=== PATIENT | male | born 1940 | race African-American/Black ===

== ENCOUNTER 2017-11-22 21:45 | Emergency (ER) | payer MEDICARE ==
[2017-11-22 22:37] LABS: #Eosinphils 0.1 thou/uL (0.0-0.7); #Lymphocytes 1.5 thou/uL (1.20-3.40); #Monocytes 0.3 thou/uL (0.11-0.59); #Neutrophils 1.8 thou/uL (1.40-6.50); %Eosinophils 3.3 % (0.0-10.0); %Lymphocytes 39.8 % (21.0-51.0); %Monocytes 8.1 % (0.0-10.0); %Neutrophils 48.7 % (42.0-75.0); Hemoglobin 12.7 g/dL (14.0-18.0); Mean Corpuscular HGB CONC 34.1 g/dL (32.0-36.0); Mean Corpuscular Volume 87.9 fl (80.0-94.0); Mean Platelet Volume 7.4 fL (7.4-10.4); Platelet Count 187 thou/uL (130-400); RBC Distribution Width 11.4 % (11.5-14.5); Red Blood Cell (RBC) Count 4.25 mill/uL (4.70-6.10); White Blood Cell (WBC) Count 3.7 thou/uL (4.8-10.8)
[2017-11-22 22:59] LABS: ALT (SGPT) 23 U/L (8-55); AST (SGOT) 20 U/L (5-34); Alkaline Phosphatase 214 U/L (40-150); Anion Gap 14 mmol/L (10-20); BUN (Urea Nitrogen) 23 mg/dL (8.4-25.7); Bilirubin, Total 0.6 mg/dL (0.2-1.2); Calc. Creatinine Clearance 0 mL/min (70-130); Calcium 9.5 mg/dL (7.8-10.44); Carbon Dioxide 28 mmol/L (23-31); Chloride 98 mmol/L (98-107); Estimated GFR-MDRD 53; Glucose 365 mg/dL (83-110); Potassium 3.8 mmol/L (3.5-5.1); Sodium 136 mmol/L (136-145)
[2017-11-22 23:24] LABS: Bilirubin Negative (Negative); Blood, Urine Negative (Negative); Clarity CLEAR (Clear); Glucose, Urine (Dipstick) >=1000 mg/dL (Negative); Leukocyte Negative (Negative); Nitrite Negative (Negative); Protein, Urine (Dipstick) Negative (Neg-Trace); Specific Gravity, Urine 1.013 (1.002-1.036); Urobilinogen 0.2 mg/dL (0.2-1.0); pH, Urine 5.5 (5.0-9.0)
== END 2017-11-23 01:45 | disposition home or self-care (01) ==
LOC: ERS 21:45
DX: E11.65 Type 2 diabetes mellitus with hyperglycemia (principal); N40.0 Benign prostatic hyperplasia without lower urinary tract symptoms; E11.9 Type 2 diabetes mellitus without complications; E78.5 Hyperlipidemia, unspecified; I10 Essential (primary) hypertension; F17.220 Nicotine dependence, chewing tobacco, uncomplicated; F32.9 Major depressive disorder, single episode, unspecified; Z79.4 Long term (current) use of insulin
CPT/HCPCS: 36415; 36416; 80053; 81003; 85025; 99284

== ENCOUNTER 2018-04-29 07:54 | Observation (INO) | payer MEDICARE ==
[2018-04-29 08:22] LABS: #Eosinphils 0.1 thou/uL (0.0-0.7); #Lymphocytes 0.5 thou/uL (1.20-3.40); #Monocytes 0.3 thou/uL (0.11-0.59); #Neutrophils 2.9 thou/uL (1.40-6.50); %Basophils 0.7 % (0.0-1.0); %Eosinophils 2.2 % (0.0-10.0); %Lymphocytes 12.5 % (21.0-51.0); %Monocytes 7.6 % (0.0-10.0); Hemoglobin 13.4 g/dL (14.0-18.0); Mean Corpuscular HGB CONC 34.9 g/dL (32.0-36.0); Mean Corpuscular Hemoglobin 30.8 pg (27.0-31.0); Mean Corpuscular Volume 88.4 fL (78.0-98.0); Mean Platelet Volume 7.2 fL (7.4-10.4); Platelet Count 133 thou/uL (130-400); RBC Distribution Width 11.8 % (11.5-14.5); Red Blood Cell (RBC) Count 4.35 mill/uL (4.70-6.10); White Blood Cell (WBC) Count 3.8 thou/uL (4.8-10.8)
[2018-04-29 08:43] LABS: ALT (SGPT) 15 U/L (8-55); AST (SGOT) 19 U/L (5-34); Albumin 3.6 g/dL (3.4-4.8); Alkaline Phosphatase 265 U/L (40-150); Anion Gap 11 mmol/L (10-20); BUN (Urea Nitrogen) 23 mg/dL (8.4-25.7); CK (CPK) 342 U/L (30-200); Calc. Creatinine Clearance 0 mL/min (70-130); Calcium 8.7 mg/dL (7.8-10.44); Carbon Dioxide 24 mmol/L (23-31); Chloride 106 mmol/L (98-107); Estimated GFR-MDRD 72; Globulin 2.7 g/dL (2.4-3.5); Glucose 216 mg/dL (83-110); Potassium 3.7 mmol/L (3.5-5.1); Protein, Total 6.3 g/dL (5.8-8.1); Sodium 137 mmol/L (136-145)
[2018-04-29 08:48] LABS: CKMB 3.3 ng/mL (0-6.6); Troponin I Less than 0.010 ng/mL (< 0.028)
[2018-04-29 10:25] LABS: Bilirubin Negative (Negative); Blood, Urine Negative (Negative); Clarity CLEAR (Clear); Glucose, Urine (Dipstick) >=1000 mg/dL (Negative); Leukocyte Negative (Negative); Nitrite Negative (Negative); Protein, Urine (Dipstick) Negative (Neg-Trace); Specific Gravity, Urine 1.029 (1.002-1.036); pH, Urine 5.5 (5.0-9.0)
--- NOTE | 2018-04-29 10:45 | CT ---
NONCONTRAST CT HEAD: Date: 04/29/18 HISTORY: Generalized weakness. Patient fell. COMPARISON: 06/17/16. FINDINGS: There is no evidence of a hemorrhage, acute cortical infarction, mass effect, or midline shift. Mild cerebral volume loss is again present. Ventricular system is normal in size, shape, and position. Sy mmetric bilateral basal ganglia calcifications are again identified. There is mild mucosal thickening in a few ethmoidal air cells. Mastoid air cells are clear. Calvarial structures are intact. There has been no significant interval change from the prior exam. IMPRESSION: No acute intracranial abnormality is demonstrated. POS: [facility]
[2018-04-29] MEDS ORDERED: hydrALAZINE 20 MG/ML VIAL ONE (13:21)
[2018-04-29] MEDS ORDERED: Acetaminophen 325 MG TAB PO PRN (13:44)
[2018-04-29] MEDS ORDERED: Dextrose 5% in Water 1,000 ML IV PRN (13:50)
[2018-04-29] MEDS ORDERED: Dextrose 50% Abboject 50 ML SYRINGE SLOW IVP PRN (13:50)
--- NOTE | 2018-04-29 14:41 | HP ---
CHIEF COMPLAINT: Weakness. HISTORY OF PRESENT ILLNESS: This patient is a 77-year-old male who reports that he has had some gene ralized weakness which seems to be a result of his back and lower legs and left shoulder more than an ything. He states that 2 weeks ago he bent over for some reason, then he was not able to stabilize h imself and kept falling forward and bumped the top of his head. He shows me a small healing area whe re he had a superficial abrasion. Today, the patient was asleep and awoke around 6:30 thinking he ne eded to void. He tried to get up and his legs would not support him, so he fell to the ground and araiza d some incontinence. The patient reports that he has generalized weakness in his legs and back that have been going on for a very long while and seemed to be getting worse. He occasionally has some ti ngling in the left shoulder and has some specific pain and weakness isolated to the left shoulder. Daniela wiseman has a TENS unit that he uses for that. He denies specifically any fevers, chills or malaise. He r eports that he typically cannot walk further than across the bedroom because he has too much pain in his back and weakness in his legs. The patient in the emergency room was experiencing some headache. His blood pressure became somewhat elevated. He required some IV medications to address that. PAST MEDICAL HISTORY: Notable for diabetes, diabetic neuropathy, BPH, hypertension, hyperlipidemia. PAST SURGICAL HISTORY: Right lung surgery secondary to what he says was a pneumonia when he was abou t 8 years old. History of left knee surgery and eye surgery. SOCIAL HISTORY: The patient is a nonsmoker. He quit smoking in 1977. He only drinks very occasiona lly socially. He is a nondrug user. He previously lived alone, but his daughter has now moved in [facility]. His daughter and granddaughter do most of the shopping and cooking. He does continue to [employer]. CODE STATUS: The patient is a FULL CODE and his surrogate decision maker would be his daughter, Michelle Daniels. FAMILY HISTORY: Father and mother both of cancer. REVIEW OF SYSTEMS: GENERAL: The patient has no fevers or chills. Reports his weight has been steady. ENT: He has some hearing difficulty and wears hearing aids. CARDIAC: Negative. He denies chest pains, palpitations. PULMONARY: Negative. Denies any shortness of breath or cough. GASTROINTESTINAL: The patient denies any incontinence or diarrhea, but does occasionally have some c onstipation. : The patient does have urinary urgency. SKIN: Negative. No lesions or rashes. NEURO: As stated above in the history of present illness. PSYCHIATRIC: No anxiety or depression. ENDO: The patient denies any polyuria, polydipsia. He is not following his blood sugars routinely a t home. ALLERGIES: None. CURRENT MEDICATIONS: Glyburide 5 mg every day, gabapentin 300 mg t.i.d., metformin 1000 mg b.i.d., a spirin 81 mg every day, Crestor 40 mg every day, Tramadol 50 mg q.6 hours p.r.n., Coreg 12.5 mg b.i. d. Losartan/HCTZ 100/25 one p.o. daily, Flomax 0.4 mg every day, calcium 300 mg 2 p.o. daily. PHYSICAL EXAMINATION: VITAL SIGNS: Last blood pressure documented was 159/106, pulse 71, respirations 16, O2 sat 96% on ro om air. GENERAL APPEARANCE Age appropriate male. He is in no distress. He is awake, alert, and extremely pl easant, cooperative. HEENT: PERRL. No OP lesions. NECK: Supple and symmetric without lymphadenopathy or JVD. CARDIOVASCULAR: Regular rate and rhythm without murmurs, gallops or rubs. LUNGS: Clear to auscultation bilaterally with good chest wall expansion and air exchange. ABDOMEN: Soft, nontender, nondistended, positive bowel sounds, no masses, no organomegaly. EXTREMITIES: Warm and dry without edema. The patient appears to have some slight atrophy in the pos terior deltoid area. NEUROLOGIC: The patient has a subtle weakness on the left lower extremity distally. He also has equ ivocal weakness on the left upper extremity. LABORATORY DATA: White count 3.8, hemoglobin 13.4, platelets 133. Sodium 137, potassium 3.7, chlori de 106, BUN 23, creatinine 1.18, glucose 216, AST 19, ALT 15, alkaline phosphatase 265, CK 342. Trop onin less than 0.01. Urinalysis negative except for glucosuria. CT scan of the brain with no acute intracranial abnormalities. ASSESSMENT AND PLAN: 1. Generalized weakness. The patient was seen here in 06/2016, at which time he underwent an extens jostin workup for syncope. He had an MRI of the brain, carotid Dopplers, echocardiogram, as well as cecil ging of the C-spine, all of that was normal at that time. We will go ahead and evaluate with a repea t echocardiogram and continuous telemetry. We will get MRI of the C-spine and the lumbar spine. Obt ain PT and OT consults. 2. Hypertension. The patient is having fairly substantial hypertension in the emergency room. He w as given his usual home medications which he had missed this morning. He has also received 1 dose of IV hydralazine. We will continue to monitor. 3. Diabetes mellitus. Continue with his usual home medications as well as Accu-Cheks, sliding scale and an ADA diet. 4. Mild pancytopenia. This appears to be chronic, likely related to some mild bone marrow suppressi on. 5. History of diabetic neuropathy. The patient is on Neurontin. We will continue with his baseline dose. 6. History of benign prostatic hypertrophy. Continue with the tamsulosin. 7. We will hold off on any DVT prophylaxis as the patient will be in observation status.
--- NOTE | 2018-04-29 14:51 | RAD ---
LEFT SHOULDER 3 VIEWS: Date: 04/29/18 HISTORY: Weakness. Fall out of chair. COMPARISON: None. FINDINGS: Mild soft tissue swelling around the left deltoid musculature. Moderate degenerative disease acromioc lavicular joint. No acute displaced fracture or malalignment. Mild calcific tendinosis. IMPRESSION: Chronic findings. No acute abnormality. POS: [facility]
[2018-04-29 15:28] VITALS: BMI 24.5
[2018-04-29] MEDS: HumaLOG 300 UNITS/3 ML VIAL SC PRN (20:43)
[2018-04-30] MEDS: HumaLOG 300 UNITS/3 ML VIAL SC PRN ×3 (06:46→18:37)
[2018-04-30] MEDS ORDERED: ISOVUE-370 76%-LOCM 1 ML ONE (08:54)
--- NOTE | 2018-04-30 10:18 | MRI ---
MRI LUMBAR SPINE WITHOUT IV CONTRAST: Date: 04-30-18 History: Left sided weakness and low back pain. Bilateral lower extremity pain and back pain after a fall. Comparison: CT lumbar spine 2011. No prior MRI lumbar spine is available for comparison. FINDINGS: There is a right adrenal mass which measures 2.7 cm. This mass is stable in size compared to prior CT abdomen on 02-01-16 and on that report this is characterized as an adrenal adenoma. Retroperitoneal st ructures otherwise have a normal MRI appearance. Conus medullaris is normal in appearance and terminates at the L1-2 level. There is generalized heterogeneity of the bone marrow, greatest involving the L3 vertebral body. Jeri lar finding was seen on prior CT abdomen on 11-29-[address] lumbar spine on 08-24-12. Findings may be related to Paget's disease given appearance on prior CT evaluation. L1-2: There is a mild disc osteophyte complex with facet hypertrophic changes. There is minimal narro wing of the central spinal canal as well as evidence of mild left sided neural foraminal narrowing. T he right neural foramen is patent. L2-3: There is a broad based disc osteophyte complex and facet hypertrophic changes with ligamentous thickening. Findings result in mild narrowing of the central spinal canal with mild to moderate left sided neural foraminal narrowing. There is mild right sided neural foraminal narrowing. L3-4: There is minimal disc osteophyte complex at this level. There are facet hypertrophic changes an d mild ligamentous thickening. However, there is no significant narrowing of the central spinal canal . There is mild bilateral neural foraminal narrowing, greater on the left. L4-5: There is loss of intervertebral disc height. There is a broad based disc osteophyte complex pre sent. Facet hypertrophic change and ligamentous thickening are noted. Findings result in mild narrowi ng of the central spinal canal with mild to moderate bilateral neural foraminal narrowing. L5-S1: There is loss of intervertebral disc height. There is minimal disc osteophyte complex present. However, the central spinal canal at this level is patent. Facet hypertrophic changes are present. T here is moderate to severe bilateral neural foraminal narrowing. IMPRESSION: 1. Multilevel degenerative changes in the lumbar spine as described above with mild to moderate degre es of neural foraminal narrowing, greatest at the L5-S1 level. 2. Generalized heterogeneity of the bone marrow. There was a mixed lytic and sclerotic appearance of the osseous structures are prior CT exam in 2011 as well as on study in 2010 which may be related to Pagetoid changes of the osseous structures. 3. Stable right adrenal nodule shown to represent an adrenal adenoma on prior CT evaluation in 2016. POS: [facility]
--- NOTE | 2018-04-30 10:45 | MRI ---
MRI CERVICAL SPINE WITHOUT CONTRAST: HISTORY: Left-sided weakness. COMPARISON: CT cervical spine from 06/17/2016. FINDINGS: There is mildly increased T2 signal within the T1 vertebral body and the posterior elements, includin g the spinous process. This corresponds to the Pagetoid findings seen on the CT examination from 201 6. The marrow signal of the clivus is normal. The cerebellar tonsils terminate above the foramen magnum . No inherent abnormal cord signal abnormality. Levels are as follows: C2-C3: No neural foraminal or spinal canal narrowing. Moderate facet arthropathy. C3-C4: Mild degenerative disk space height loss. There is moderate facet arthrosis. Moderate bilat eral neural foraminal narrowing with uncinate process hypertrophy in both subforaminal zones. C4-C5: There is ankylosis of the C4 and C5 vertebral bodies. Moderate facet arthropathy. Moderate uncinate process hypertrophy. Moderate bilateral neural foraminal narrowing. C5-C6: There is left subforaminal and posterior disk osteophyte complex causing moderate to severe l eft-sided neural foraminal narrowing. There is uncinate process hypertrophy and right subforaminal p osterior disk osteophyte complex causing moderate right-sided neural foraminal narrowing. The spinal canal measures approximately a centimeter. C6-C7: Large posterior disk osteophyte complex. Moderate uncinate process hypertrophy. Moderate fa cet arthrosis. Moderate to severe left-sided and right-sided neural foraminal narrowing. The spinal canal measures approximately 13 mm. IMPRESSION: 1. Multilevel neural foraminal narrowing due to a combination of facet arthrosis, uncinate process h ypertrophy, and posterior disk osteophyte complexes. 2. 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 POS: [facility]
--- NOTE | 2018-04-30 14:26 | EKG ---
Test Reason : Blood Pressure : / mmHG Vent. Rate : 076 BPM Atrial Rate : 076 BPM P-R Int : 184 ms QRS Dur : 090 ms QT Int : 380 ms P-R-T Axes : 067 076 094 degrees QTc Int : 427 ms Normal sinus rhythm Possible Left atrial enlargement Nonspecific ST and T wave abnormality Abnormal ECG Confirmed by HUMERA HIDALGO, THONY ([id number]), magazine editor MICKEY CALLE ([id number]) on 04/30/2018 2:26:10 PM Referred By: Confirmed By:THONY GRUBBS MD
--- NOTE | 2018-04-30 17:00 | CT ---
CT BRAIN WITHOUT CONTRAST CT ANGIOGRAM HEAD WITH CONTRAST CT ANGIOGRAM NECK WITH CONTRAST 04/30/18 HISTORY: Fall. Weakness. COMPARISON: CT brain prior day. FINDINGS: There is no acute territorial infarct or hemorrhage. No midline shift or mass effect. Ventricular siz e and extra-axial CSF spaces are normal for age. There are senile calcifications at the basal ganglia bilaterally unchanged. The paranasal sinuses and mastoids are clear. The lung apices have some mild scarring. No pneumothora x. No cervical adenopathy. There is a hypodensity left lobe of the thyroid. Alignment of the cervical spine is without fracture. T1 pagetoid changes are similar. Origins of the vertebral arteries are patent. The vertebral arteries are codominant. Basilar artery is patent. The origins of the common carotid arteries are patent. No hemodynamically significant stenosis of the internal carotid arteries using NASCET criteria. [place] is patent. No thrombosis, aneurysmal formation or significant narrowing. IMPRESSION: 1. No hemodynamically significant stenosis, thrombosis, or aneurysm formation. No acute intracra nial abnormality. 2. Hypodensity left lobe of the thyroid for which nonemergent ultrasound recommended. POS: [facility]
[2018-04-30] MEDS ORDERED: hydrALAZINE 20 MG/ML VIAL SLOW IVP SCH (18:15)
[2018-04-30 20:14] VITALS: BP 186/68; TEMP 97.3
[2018-04-30] MEDS ORDERED: Rosuvastatin 20 MG TAB PO SCH (21:00)
[2018-04-30] MEDS ORDERED: Insulin Glargine 42 UNITS in Pre-Filled Syringe 1 EACH SC SCH (21:00)
[2018-04-30] MEDS ORDERED: Gabapentin 300 MG CAP PO SCH (21:00)
[2018-04-30] MEDS ORDERED: Tamsulosin HCl 0.4 MG CAP PO SCH (21:00)
[2018-04-30] MEDS ORDERED: Carvedilol 6.25 MG TAB PO SCH (21:00)
[2018-04-30] MEDS ORDERED: traMADol HCl 50 MG TAB PO SCH (22:00)
[2018-05-01] MEDS ORDERED: glipiZIDE 10 MG TAB PO SCH (08:00)
[2018-05-01] MEDS ORDERED: Calcium Carbonate 600 MG TAB PO SCH (09:00)
[2018-05-01] MEDS ORDERED: Aspirin 81 mg Enteric Coated Tablet PO SCH (09:00)
[2018-05-01] MEDS ORDERED: Losartan/Hydrochlorothiazide 100 mg/25 mg Tablet PO SCH (09:00)
== END 2018-04-30 20:06 | disposition home or self-care (01) ==
LOC: ERS 07:54 → 2SE 13:57
PROVIDERS: ADMIT Internal Medicine; ATTEND Internal Medicine
DX: R53.1 Weakness (principal); R32 Unspecified urinary incontinence; E11.40 Type 2 diabetes mellitus with diabetic neuropathy, unspecified; I10 Essential (primary) hypertension; N40.0 Benign prostatic hyperplasia without lower urinary tract symptoms; E78.5 Hyperlipidemia, unspecified; D61.818 Other pancytopenia; Z87.891 Personal history of nicotine dependence; Z79.84 Long term (current) use of oral hypoglycemic drugs; Z79.82 Long term (current) use of aspirin; Z79.899 Other long term (current) drug therapy; W19.XXXA Unspecified fall, initial encounter
CPT/HCPCS: 70450; 70496; 70498; 72141; 72148; 73030; 80053; 81003; 82550 ×2; 82553; 82962 ×2; 84484; 85025; 85652; 93005; 93306; 96374; 97139 ×4; 99285; G0378 ×2; G8978; G8979; G8987; G8988; G8989; 36415; 36416; J0360

== ENCOUNTER 2018-07-01 12:55 | Observation (INO) | payer MEDICARE ==
[2018-07-01 14:25] LABS: #Eosinphils 0.1 thou/uL (0.0-0.7); #Lymphocytes 1.1 thou/uL (1.20-3.40); #Monocytes 0.3 thou/uL (0.11-0.59); #Neutrophils 3.6 thou/uL (1.40-6.50); %Basophils 0.9 % (0.0-1.0); %Eosinophils 1.6 % (0.0-10.0); %Lymphocytes 21.1 % (21.0-51.0); %Monocytes 6.3 % (0.0-10.0); Hemoglobin 14.6 g/dL (14.0-18.0); Mean Corpuscular HGB CONC 33.6 g/dL (32.0-36.0); Mean Corpuscular Hemoglobin 29.7 pg (27.0-31.0); Mean Corpuscular Volume 88.5 fL (78.0-98.0); Mean Platelet Volume 7.4 fL (7.4-10.4); Platelet Count 149 thou/uL (130-400); RBC Distribution Width 11.3 % (11.5-14.5); Red Blood Cell (RBC) Count 4.91 mill/uL (4.70-6.10); White Blood Cell (WBC) Count 5.2 thou/uL (4.8-10.8)
[2018-07-01 14:43] LABS: Anion Gap 13 mmol/L (10-20); BUN (Urea Nitrogen) 24 mg/dL (8.4-25.7); Calc. Creatinine Clearance 0 mL/min (70-130); Calcium 9.7 mg/dL (7.8-10.44); Carbon Dioxide 30 mmol/L (23-31); Chloride 101 mmol/L (98-107); Estimated GFR-MDRD 57; Glucose 131 mg/dL (83-110); Potassium 4.2 mmol/L (3.5-5.1); Sodium 140 mmol/L (136-145)
[2018-07-01 14:50] LABS: CKMB 5.7 ng/mL (0-6.6); Troponin I Less than 0.010 ng/mL (< 0.028)
--- NOTE | 2018-07-01 15:37 | CT ---
BRAIN CT WITHOUT IV CONTRAST: 07/01/18 HISTORY: 77-year-old male with history of syncope. Patient has prior past medical history of seizures, diabete s mellitus, hypertension. COMPARISON: 04/29/18. IMPRESSION: No significant acute intracranial process. No mass or bleed. Stable from prior study. POS: [facility]
--- NOTE | 2018-07-01 15:38 | RAD ---
CHEST PA AND LATERAL: 07/01/18 HISTORY: Abnormal EKG, seizure. COMPARISON: 01/26/17. Heart size is within normal limits. Monitor leads overlie the chest. No confluent pneumonia, overt ed james or pleural effusion. IMPRESSION: No acute intrathoracic disease. Stable from prior study. POS: [facility]
[2018-07-01 18:16] LABS: Troponin I Less than 0.010 ng/mL (< 0.028)
[2018-07-01] MEDS ORDERED: Dextrose 5% in Water 1,000 ML IV PRN (19:57)
[2018-07-01] MEDS ORDERED: HumaLOG 300 UNITS/3 ML VIAL SC PRN (19:57)
[2018-07-01] MEDS ORDERED: hydrALAZINE 20 MG/ML VIAL SLOW IVP PRN (19:57)
[2018-07-01] MEDS ORDERED: Acetaminophen 500 MG TAB PO PRN (19:57)
[2018-07-01] MEDS ORDERED: Dextrose 50% Abboject 50 ML SYRINGE SLOW IVP PRN (19:57)
[2018-07-01] MEDS ORDERED: Ondansetron ODT 4 MG TAB PO PRN (19:57)
[2018-07-01] MEDS ORDERED: Ondansetron PF 4 MG/2 ML Vial IVP PRN (19:57)
[2018-07-01] MEDS ORDERED: cloNIDine 0.1 MG TAB PO PRN (19:57)
[2018-07-01 20:47] LABS: Troponin I Less than 0.010 ng/mL (< 0.028)
[2018-07-01] MEDS: Famotidine 20 MG TAB PO SCH (21:32)
[2018-07-01] MEDS: Tamsulosin HCl 0.4 MG CAP PO SCH (21:32)
[2018-07-01] MEDS: Rosuvastatin 20 MG TAB PO SCH (21:32)
[2018-07-01] MEDS: Gabapentin 300 MG CAP PO SCH (21:33)
[2018-07-01] MEDS: Sodium Chloride 0.9% 1,000 ML IV SCH (21:49)
[2018-07-01 22:21] VITALS: BMI 23.9
[2018-07-01] MEDS: traMADol HCl 50 MG TAB PO SCH (23:30)
--- NOTE | 2018-07-02 01:49 | HP ---
DATE OF ADMISSION: 07/01/2018 PRIMARY CARE PHYSICIAN: Dr. Tammy Zhou with [facility]. CHIEF COMPLAINT: Passing out. HISTORY OF PRESENT ILLNESS: This is a 77-year-old -English male who presents to [facility] Emergency Department after an apparent syncopal event. The patient was shopping at a store w hen he began to look weak, at which point, a pharmacy cashier offered him water. Witnesses report, patient sl umped over in a chair and was unresponsive for approximately 30 seconds. No seizure activity was not ed. No bowel or bladder incontinence reported. The patient did not bite his tongue or show evidence of extremity jerking. EMS was notified and the patient was evaluated with an initial glucose report ed at 144. The patient apparently was not postictal on exam and was alert and oriented x4 when awake douglas. The patient apparently has had several similar episodes in the past; however, no specific etio logy has been identified. No specific history of seizure or chronic seizure medications. The patien t denies any nausea, vomiting, visual disturbance, unilateral weakness or preceding episode. The pat ient denied chest pain, shortness of breath, fever, chills, exposure history. The patient's granddau ter reports the patient was noted with an episode of weakness requiring sitting down that resolved spontaneously. The patient denies taking any supplements or medications that has not been previously prescribed. The patient was notably admitted and evaluated at [facility] between to 04/30/2018. The patient was diagnosed with generalized weakness and noted with multilevel degen erative changes of the cervical and lumbar spine with questionable radiculopathy. The patient was re leased home without specific recommendations for therapy or followup. The patient continued on his c hronic medication regimen and states he has been compliant. In the emergency room, the patient under went general evaluation including CT of the brain showing no acute intracranial process. The patient received intravenous normal saline x1 liter and referred to the Hospitalist Service for admission. PAST MEDICAL HISTORY: 1. Hypertension. 2. Diabetes mellitus type 2. 3. Benign prostatic hyperplasia. 4. Diabetic neuropathy. 5. Hyperlipidemia. 6. 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 PAST SURGICAL HISTORY: 1. Status post right lung surgery secondary to complications of pneumonia. 2. Status post left knee surgery. 3. Status post eye surgery. CURRENT MEDICATIONS: 1. Aspirin 81 mg 1 tab p.o. daily. 2. Calcium carbonate 600 mg p.o. daily. 3. Carvedilol 12.5 mg p.o. b.i.d. 4. Gabapentin 900 mg p.o. at bedtime. 5. Glipizide 10 mg p.o. b.i.d. 6. Glargine insulin 42 units subcutaneously at bedtime. 7. Losartan/hydrochlorothiazide 100/25 mg 1 tab p.o. daily. 8. Metformin 1000 mg p.o. b.i.d. 9. Crestor 40 mg p.o. daily. 10. Tramadol 50 mg p.o. q.8 hours p.r.n. 11. Flomax 0.4 mg p.o. at bedtime. ALLERGIES: No known drug allergies. FAMILY HISTORY: Both parents of complications of cancer. SOCIAL HISTORY: The patient uses smokeless tobacco one can per week. Lives independently, but is ac companied by his daughter and granddaughter in the hospital. Quit smoking tobacco products in 1977. No alcohol or illicit drug use. The patient continues to drive and ambulate without the use of assi stive device. REVIEW OF SYSTEMS: The following complete review of systems was negative, unless otherwise mentioned in the HPI or below: Constitutional: Weight loss or gain, ability to conduct usual activities. Ski n: Rash, itching. Eyes: Double vision, pain. ENT/Mouth: Nose bleeding, neck stiffness, pain, tend erness. Cardiovascular: Palpitations, dyspnea on exertion, orthopnea. Respiratory: Shortness of b reath, wheezing, cough, hemoptysis, fever or night sweats. Gastrointestinal: Poor appetite, abdomin al pain, heartburn, nausea, vomiting, constipation, or diarrhea. Genitourinary: Urgency, frequency, dysuria, nocturia. Musculoskeletal: Pain, swelling. Neurologic/Psychiatric: Anxiety, depression. Allergy/Immunologic: Skin rash, bleeding tendency. Otherwise negative except as stated per HPI. PHYSICAL EXAMINATION: VITAL SIGNS: On admission, blood pressure 129/69, pulse 70, respiratory rate 16, temperature 97.5 de grees Fahrenheit, O2 saturation is 97% on room air. GENERAL APPEARANCE: This is a 77-year-old -English male, alert and oriented x3, pleasant, in no acute distress. HEENT: Pupils are equal, round, and reactive to light and accommodation. Extraocular muscles are in tact. No scleral icterus, no conjunctival injection. Nares patent. OP is clear. Teeth in poor rep air with multiple missing teeth. NECK: Supple, no cervical adenopathy, no thyromegaly, no carotid bruits, no JVD noted. CHEST: Lungs are clear to auscultation bilaterally. CARDIOVASCULAR: S1, S2 with a 2/6 systolic ejection murmur loudest at the apex. ABDOMEN: Rounded, soft, nontender, nondistended. Bowel sounds are positive in all 4 quadrants with no hepatosplenomegaly, no abdominal bruits, no rebound or guarding appreciated. EXTREMITIES: Warm and dry with fair turgor. No clubbing, cyanosis or asymmetric edema appreciated. Pulses palpable distally at the dorsalis pedis, posterior tibial, and popliteal arteries bilaterally . Capillary refill less than 2 seconds. NEUROLOGIC: Cranial nerves II-XII are grossly intact. No focal or lateralizing signs noted. PERTINENT LABORATORY AND X-RAY FINDINGS: Sodium 140, potassium 4.2, chloride 101, CO2 of 30, BUN 24, creatinine 1.45, estimated GFR of 57, glucose 131, calcium 9.7. Troponin I negative x3. TSH 1.39. CBC showed a white blood cell count of 5.2, hemoglobin 14.6, hematocrit 44, platelet count 149 with normal differential. Portable chest x-ray dated 07/01/2018 showed no acute cardiopulmonary process. CT of the brain without contrast dated 07/01/2018 showed no acute intracranial process. EKG dated by my interpretation shows a sinus mechanism, heart rates in the 70s. Normal R-wave progre ssion noted in the precordial leads. T-wave flattening in leads V4 through V6. Normal axis. ASSESSMENT AND PLAN: 1. Syncopal episode. The patient will be observed on the telemetry unit. Exact etiology unclear. Questionable cardiogenic source. We will continue to rule out cardiogenic source with cardiac stress testing and 2D transthoracic echocardiogram. We will continue telemetry monitoring to rule out unde rlying arrhythmia or dysrhythmia. 2. Acute kidney injury. We will continue intravenous normal saline at 75 mL per hour. Avoid nephro toxic agents and limit contrast exposure. 3. Dehydration. See #2 above. Encourage increased free water intake. 4. Hypertension. Resume home antihypertensive regimen and monitor serial blood pressure trend. 5. Diabetes mellitus type 2. Insulin sliding scale for reflexive coverage. ADA diet. Accu-Cheks a .c. and at bedtime. Check A1c level in the a.m. 6. Tobacco use. We will offer smokeless tobacco cessation resources prior to discharge. 7. Prophylaxis. Sequential compression devices while in bed. Pepcid 20 mg p.o. b.i.d. PT evaluati on for functional assessment. 8. Code status is FULL. Surrogate medical decision maker is patient's granddaughter.
[2018-07-02 05:00] LABS: Hemoglobin A1c 9.6 % (4.0-6.0)
[2018-07-02 05:05] LABS: Anion Gap 9 mmol/L (10-20); BUN (Urea Nitrogen) 23 mg/dL (8.4-25.7); Calc. Creatinine Clearance 52 mL/min (70-130); Calcium 8.7 mg/dL (7.8-10.44); Carbon Dioxide 30 mmol/L (23-31); Cardiac Risk 3.1 (Less than 4.5); Chloride 102 mmol/L (98-107); Cholesterol 74 mg/dl (< 200 Desired); Estimated GFR-MDRD 58; Glucose 193 mg/dL (83-110); HDL Cholesterol 24 mg/dL (>60 Neg Risk); LDL Cholesterol, Calculated 33 mg/dL; Sodium 138 mmol/L (136-145); Triglycerides 86 mg/dL (Less than 150)
[2018-07-02 05:20] LABS: Band 20 % (5-11); Hemoglobin 12.6 g/dL (14.0-18.0); Lymphocytes 14 % (21-51); MDiff Complete? YES; Mean Corpuscular HGB CONC 34.1 g/dL (32.0-36.0); Mean Platelet Volume 7.7 fL (7.4-10.4); Monocytes 2 % (0-10); Neutrophil 64 % (42-75); Platelet Count 134 thou/uL (130-400); RBC Distribution Width 11.4 % (11.5-14.5); Red Blood Cell (RBC) Count 4.19 mill/uL (4.70-6.10); White Blood Cell (WBC) Count 6.7 thou/uL (4.8-10.8)
[2018-07-02] MEDS: traMADol HCl 50 MG TAB PO SCH ×3 (06:27→21:26)
[2018-07-02 06:42] LABS: Bilirubin Negative (Negative); Blood, Urine Negative (Negative); Clarity CLOUDY (Clear); Glucose, Urine (Dipstick) 100 mg/dL (Negative); Leukocyte Negative (Negative); Nitrite Negative (Negative); Protein, Urine (Dipstick) Negative (Neg-Trace); Urobilinogen 0.2 mg/dL (0.2-1.0); pH, Urine 5.5 (5.0-9.0)
[2018-07-02] MEDS: glipiZIDE 5 MG TAB PO SCH ×3 (09:06→17:07)
[2018-07-02] MEDS: HumaLOG 300 UNITS/3 ML VIAL SC PRN ×2 (12:32→17:07)
[2018-07-02] MEDS: Aspirin 81 mg Enteric Coated Tablet PO SCH (12:39)
[2018-07-02] MEDS: Famotidine 20 MG TAB PO SCH ×2 (12:39→21:31)
--- NOTE | 2018-07-02 13:34 | NM ---
MYOCARDIAL PERFUSION EVALUATION: Indication: History of chest pain. Radiopharmaceutical: 13 mCi Technetium 99M Sestamibi IV at stress and 11 mCi Technetium 99M Sestamibi at rest. FINDINGS: When comparing the rest and stress data, there definite reversible myocardial perfusion defect is corey dent. There is normal wall motion. The estimated LVEF is 68%. IMPRESSION: 1. No scintigraphic evidence to suggest reversible myocardial ischemia. 2. Estimated LVEF is 68%. POS: [facility]
--- NOTE | 2018-07-02 14:44 | MRI ---
MRI BRAIN WITH AND WITHOUT CONTRAST: DATE: 07-02-18 HISTORY: 77-year-old male with recurrent syncope. TECHNIQUE: Multiple sequences obtained in axial, sagittal, and coronal planes; pre and post IV injection of gado linium-based contrast agent: 17 ml MultiHance FINDINGS: The ventricles are normal in size and configuration. There is no restricted diffusion, abnormal intr aaxial enhancement, mass, midline shift or any other mass effect, recent intraaxial hemorrhage, or ex traaxial fluid collection. There are mild chronic ischemic white matter changes due to mild microvasc ular atherosclerosis. Most of the images are degraded by patient motion. There are diffuse, age-appro priate involutional changes of the brain. IMPRESSION: 1. Mild chronic ischemic white matter changes. 2. Otherwise negative. emma POS: [facility]
[2018-07-02] MEDS: Sodium Chloride 0.9% 1,000 ML IV SCH (16:20)
[2018-07-02 16:36] LABS: Anion Gap 14 mmol/L (10-20); BUN (Urea Nitrogen) 20 mg/dL (8.4-25.7); Calc. Creatinine Clearance 51 mL/min (70-130); Calcium 9.2 mg/dL (7.8-10.44); Carbon Dioxide 25 mmol/L (23-31); Chloride 104 mmol/L (98-107); Estimated GFR-MDRD 57; Glucose 248 mg/dL (83-110); Potassium 3.7 mmol/L (3.5-5.1); Sodium 139 mmol/L (136-145)
--- NOTE | 2018-07-02 17:08 | PDOC.PN ---
- Subjective Encounter Start Date: 07/02/18 Encounter Start Time: 14:00 Patient seen and examined with family at bedside. He reports doing better today. He denies chest pain, shortness of breath. He had some nausea this morning that improved. He was able to walk with PT and tolerated well without weakness or dizziness. - Objective Resuscitation Status: Resuscitation Status FULL:Full Resuscitation MAR Reviewed: Yes Vital Signs & Weight: Vital Signs (12 hours) Temp Pulse Pulse Pulse Resp BP BP 07/02/18 15:03 77 79 139/76 150/72 H 07/02/18 11:33 98.5 F 75 15 07/02/18 07:27 98.3 F 73 16 BP Pulse Ox 07/02/18 15:03 07/02/18 11:33 133/65 96 07/02/18 07:27 107/58 L 94 L Weight Weight 186 lb 11.2 oz I&O: 07/01/18 07/02/18 07/03/18 06:59 06:59 06:59 Intake Total 884 363 Output Total 425 Balance 459 363 Result Diagrams: 07/02/18 04:21 07/02/18 16:08 Additional Labs: Accuchecks 07/02/18 07/02/18 07/01/18 16:13 12:16 23:50 POC Glucose 273 H 326 H 301 H 07/01/18 20:20 POC Glucose 142 H Radiology Reviewed by me: Yes EKG Reviewed by me: Yes Phys Exam - Physical Examination Constitutional: NAD HEENT: PERRLA, moist MMs, sclera anicteric, oral pharynx no lesions Neck: no nodes, no JVD, supple Respiratory: no wheezing, no rales, no rhonchi, clear to auscultation bilateral Cardiovascular: RRR, no significant murmur, no rub Gastrointestinal: soft, non-tender, no distention, positive bowel sounds Musculoskeletal: no edema, pulses present Neurological: non-focal, normal sensation, moves all 4 limbs Lymphatic: no nodes Psychiatric: normal affect, A&O x 3 Skin: no rash, normal turgor, cap refill <2 seconds Dx/Plan (1) DM type 2 (diabetes mellitus, type 2) Status: Acute (2) HTN (hypertension) Code(s): I10 - ESSENTIAL (PRIMARY) HYPERTENSION Status: Acute (3) Syncope due to orthostatic hypotension Code(s): I95.1 - ORTHOSTATIC HYPOTENSION Status: Acute (4) Dehydration Code(s): E86.0 - DEHYDRATION Status: Acute (5) Acute kidney failure Status: Acute - Plan cont current plan of care, plan discussed w/ family, PT/OT, DVT proph w/SCDs * Patient admitted under observation for syncope. No syncope like episode since admission. Stress test normal, MRI head shows no acute abnormalities. * Await echo results * Recheck BMP and monitor renal function, continue with IV normal saline and increase free water. * Continue home medications
[2018-07-02] MEDS ORDERED: ADENOSINE 60 MG/20 ML VIAL ONE (18:50)
[2018-07-02] MEDS: Tamsulosin HCl 0.4 MG CAP PO SCH (21:31)
[2018-07-02] MEDS: Rosuvastatin 20 MG TAB PO SCH (21:31)
[2018-07-02] MEDS: Gabapentin 300 MG CAP PO SCH (21:31)
[2018-07-02] MEDS ORDERED: traMADol HCl 50 MG TAB PO PRN (21:49)
[2018-07-03] MEDS: Sodium Chloride 0.9% 1,000 ML IV SCH (04:13)
[2018-07-03 05:09] LABS: Anion Gap 9 mmol/L (10-20); BUN (Urea Nitrogen) 15 mg/dL (8.4-25.7); Calc. Creatinine Clearance 61 mL/min (70-130); Calcium 8.9 mg/dL (7.8-10.44); Carbon Dioxide 28 mmol/L (23-31); Chloride 107 mmol/L (98-107); Estimated GFR-MDRD 70; Glucose 205 mg/dL (83-110); Potassium 3.3 mmol/L (3.5-5.1); Sodium 141 mmol/L (136-145)
[2018-07-03] MEDS: HumaLOG 300 UNITS/3 ML VIAL SC PRN ×2 (05:33→12:10)
[2018-07-03] MEDS ORDERED: Sodium Chloride 0.9% 10 ML ONE (06:10)
[2018-07-03] MEDS: Famotidine 20 MG TAB PO SCH (08:51)
[2018-07-03] MEDS: Aspirin 81 mg Enteric Coated Tablet PO SCH (08:51)
[2018-07-03] MEDS: glipiZIDE 5 MG TAB PO SCH (08:58)
[2018-07-03 11:53] VITALS: BP 145/82; TEMP 98.5
--- NOTE | 2018-07-03 15:22 | PDOC.EVN ---
Event Note - Event Note Event Note: Pt seen in examined in conjunction with CANDIE Conner, i have actively particiapted in the care and medical decion-making process. I agree with his assessment and plan as documented.
--- NOTE | 2018-07-03 17:24 | DIS ---
DATE OF ADMISSION: 07/01/2018 DATE OF DISCHARGE: 07/03/2018 DISCHARGE DIAGNOSES: 1. Acute kidney injury, resolved. 2. Syncopal episode, likely related to dehydration, resolved. 3. Diabetes mellitus type 2, stable. 4. Hypertension, stable. 5. Dehydration, resolved. CONSULTATIONS: None. PERTINENT LABORATORY AND DIAGNOSTIC FINDINGS: WBC 6.7, RBC 4.19, hemoglobin 12.6. Sodium 141, potas sium 3.3, glucose 205, hemoglobin A1c 9.6. Urinalysis unremarkable. Lipid panel unremarkable. Ches t x-ray showed no acute process. CT brain without contrast showed no acute process, no mass or bleed . MRI brain with and without contrast showed mild chronic ischemia white matter changes, otherwise n egative. HOSPITAL COURSE: Mr. Gray is a pleasant 77-year-old male who had presented to [facility] with some complaints of a syncopal episode, he had initially denied any symptoms of d izziness, headache, trauma. He had denied any chest pain or shortness of breath. He was shopping at a store when he felt weak and flushed, patient was witnessed to slump over in a chair and found to b e unresponsive for approximately 30 seconds. He had denied any seizure-like activity. He was transp orted to the ER via EMS. His initial glucose read 144. Upon arrival to the ER, he was alert and urban ented x4 with no complaints. He had denied any nausea or vomiting. He was admitted under observatio n for further evaluation of symptoms. He underwent CT of head which was unremarkable, along with [facility] st x-ray and MRI. The MRI of head did show some mild chronic changes, otherwise negative. His seria l troponin was negative, he had undergone a cardiac stress test which showed no evidence to suggest r eversible myocardial ischemia with an estimated left ventricular ejection fraction of 68%. Throughou t the hospital course, it was found he was positive for orthostatic hypotension, he was placed on IV fluids and did receive 2 liters of fluid which he tolerated well. His symptoms had resolved. He had no further syncopal-like episode during hospital course. He had denied chest pain, shortness of byron ath or abdominal pain throughout the hospital course. Labs also displayed a creatinine level of 1.45 , but after receiving the 2 units of fluid, his creatinine did return to baseline. He had no further complaints at that time. He was seen and examined with family at bedside prior to discharge. He wa s instructed to continue his home medications and follow medication compliance, his hemoglobin A1c wa s found to be 9.6 and it was recommended that he follow up with his primary care physician, Dr. Emmaneul Zhou in 1-2 weeks. He had verbalized his understanding for the discharge plan and he was found to be medically stable for discharge on 07/03/2018. DISCHARGE MEDICATIONS: 1. Metformin 1000 mg twice daily with meals. 2. Gabapentin 900 mg oral every evening. 3. Aspirin 81 mg daily. 4. Insulin Glargine 42 units subcu daily. 5. Tamsulosin HCL 0.4 mg at bedtime. 6. Losartan/hydrochlorothiazide 1 tab oral daily. 7. Carvedilol 12.5 mg twice daily. 8. Tramadol HCL 50 mg every 8 hours as needed for pain. 9. Crestor 40 mg oral daily. 10. Glipizide 10 mg oral twice daily with meals. 11. Amlodipine 5 mg daily. 12. Calcium plus D3 ER tablet 1 tablet daily. DISCHARGE INSTRUCTIONS: 1. Followup: The patient is to follow up with his primary care physician, Dr. Nba Zhou in 1- 2 weeks. 2. Condition on discharge: Stable. 3. DIET: Heart healthy diet. 4. ACTIVITY: No restrictions. 5. CODE STATUS: FULL CODE. 6. DISPOSITION: Home on 07/03/2018.
--- NOTE | 2018-07-05 23:20 | EKG ---
Test Reason : Blood Pressure : / mmHG Vent. Rate : 074 BPM Atrial Rate : 074 BPM P-R Int : 196 ms QRS Dur : 104 ms QT Int : 370 ms P-R-T Axes : 069 076 037 degrees QTc Int : 410 ms Normal sinus rhythm Nonspecific ST and T wave abnormality Abnormal ECG Confirmed by NIKKI GANDARA DO ([id number]), image editor MICKEY CALLE ([id number]) on 07/05/2018 11:19:51 PM Referred By: Confirmed By:NIKKI GANDARA DO
== END 2018-07-03 15:46 | disposition home or self-care (01) ==
LOC: ERS 12:55 → 2SW 16:30
PROVIDERS: ADMIT Family Medicine; ATTEND Family Medicine
DX: I95.1 Orthostatic hypotension (principal); E11.40 Type 2 diabetes mellitus with diabetic neuropathy, unspecified; N40.0 Benign prostatic hyperplasia without lower urinary tract symptoms; M47.812 Spondylosis without myelopathy or radiculopathy, cervical region; M47.816 Spondylosis without myelopathy or radiculopathy, lumbar region; E78.5 Hyperlipidemia, unspecified; I10 Essential (primary) hypertension; F17.290 Nicotine dependence, other tobacco product, uncomplicated; N17.9 Acute kidney failure, unspecified; E86.0 Dehydration; Z79.82 Long term (current) use of aspirin; Z79.84 Long term (current) use of oral hypoglycemic drugs; Z79.899 Other long term (current) drug therapy
CPT/HCPCS: 70450; 70553; 71046; 78452; 80048 ×4; 80061; 81003; 82553; 82962 ×3; 83036; 84443; 84484 ×2; 85007; 85025; 85027; 93005; 93017; 93306; 96360; 96361 ×4; 97139 ×3; 99285; A9500; G0378 ×2; G8978; G8979; G8980; 36415; 36416; J0153

== ENCOUNTER 2019-04-14 04:03 | Emergency (ER) | payer MEDICARE ==
[2019-04-14 04:46] LABS: Hemoglobin 14.4 g/dL (14.0-18.0); Mean Corpuscular HGB CONC 33.9 g/dL (32.0-36.0); Mean Corpuscular Hemoglobin 30.1 pg (27.0-31.0); Mean Corpuscular Volume 88.9 fL (78.0-98.0); Mean Platelet Volume 7.9 fL (7.4-10.4); Platelet Count 146 thou/uL (130-400); RBC Distribution Width 12.1 % (11.5-14.5); Red Blood Cell (RBC) Count 4.78 mill/uL (4.70-6.10)
[2019-04-14 04:55] LABS: ALT (SGPT) 13 U/L (8-55); AST (SGOT) 18 U/L (5-34); Albumin 4.1 g/dL (3.4-4.8); Alkaline Phosphatase 318 U/L (40-150); Anion Gap 16 mmol/L (10-20); BUN (Urea Nitrogen) 22 mg/dL (8.4-25.7); Bilirubin, Total 0.9 mg/dL (0.2-1.2); CK (CPK) 188 U/L (30-200); Calc. Creatinine Clearance 0 mL/min (70-130); Calcium 9.8 mg/dL (7.8-10.44); Carbon Dioxide 24 mmol/L (23-31); Chloride 102 mmol/L (98-107); Estimated GFR-MDRD 64; Globulin 2.7 g/dL (2.4-3.5); Glucose 235 mg/dL (83-110); Potassium 3.9 mmol/L (3.5-5.1); Protein, Total 6.8 g/dL (5.8-8.1); Sodium 138 mmol/L (136-145)
[2019-04-14 05:18] LABS: Eosinophils 2 % (0-10); Lymphocytes 36 % (21-51); MDiff Complete? YES; Monocytes 8 % (0-10); Neutrophil 54 % (42-75); Platelet Morphology Comment Appears Adequate; RBC Morphology Normal
[2019-04-14 06:27] LABS: Bilirubin Negative (Negative); Blood, Urine Negative (Negative); Clarity Clear (Clear); Glucose, Urine (Dipstick) Greater than 1000 mg/dL (Negative); Leukocyte Negative Leu/uL (Negative); Nitrite Negative (Negative); Protein, Urine (Dipstick) 10 mg/dL (Neg-Trace); Urobilinogen Normal mg/dL (Less than 2)
--- NOTE | 2019-04-14 08:04 | RAD ---
CHEST ONE VIEW: 04/14/19 HISTORY: Syncope. COMPARISON: Radiograph 2016. FINDINGS: There is mild blunting of the right lateral costophrenic sulcus. No pneumothorax. No effusion. No acu te osseous abnormality. IMPRESSION: Mild blunting right lateral costophrenic sulcus likely atelectatic change or scar. POS: CET
--- NOTE | 2019-04-18 10:09 | EKG ---
Test Reason : WEAKNESS Blood Pressure : / mmHG Vent. Rate : 066 BPM Atrial Rate : 066 BPM P-R Int : 184 ms QRS Dur : 092 ms QT Int : 390 ms P-R-T Axes : 063 073 096 degrees QTc Int : 408 ms Normal sinus rhythm Nonspecific T wave abnormality Abnormal ECG Confirmed by GIGI HIDALGO, RODRÍGUEZ ([id number]), desk editor MICKEY CALLE ([id number]) on 04/18/2019 10:08:54 AM Referred By: Confirmed By:RODRÍGUEZ YU MD
== END 2019-04-14 06:43 | disposition home or self-care (01) ==
LOC: ERS 04:03
DX: E11.65 Type 2 diabetes mellitus with hyperglycemia (principal); E78.5 Hyperlipidemia, unspecified; I10 Essential (primary) hypertension; F32.9 Major depressive disorder, single episode, unspecified; F17.220 Nicotine dependence, chewing tobacco, uncomplicated; Z79.899 Other long term (current) drug therapy; Z79.84 Long term (current) use of oral hypoglycemic drugs
CPT/HCPCS: 51701; 71045; 80053; 81003; 82550; 83880; 84484; 85025; 93005; 96360; 96361

== ENCOUNTER 2019-04-18 18:37 | Emergency (ER) | payer MEDICARE ==
--- NOTE | 2019-04-18 19:08 | CT ---
CT BRAIN NONCONTRAST: DATE: 04/18/2019 HISTORY: 78-year-old male status post syncope FINDINGS: There is no evidence of acute intra-axial or extra-axial hemorrhage. There is no midline shift or any other mass effect. There is no extra-axial fluid collection. There is no evidence of obstructive hydrocephalus. Calvarium is intact. There is diffuse brain parenchymal volume loss. There are mild lo w attenuation areas in the white matter. These are nonspecific, but in a patient of this age, they are probably chronic ischemic white matter changes due to microvascular atherosclerosis. IMPRESSION: 1) No acute intracranial findings. 2) involutional changes and mild chronic ischemic white matter changes.
[2019-04-18 19:14] LABS: #Basophils 0.1 thou/uL (0.0-0.2); #Eosinphils 0.1 thou/uL (0.0-0.7); #Lymphocytes 1.4 thou/uL (1.20-3.40); #Monocytes 0.3 thou/uL (0.11-0.59); #Neutrophils 1.7 thou/uL (1.40-6.50); %Basophils 1.8 % (0.0-1.0); %Eosinophils 2.7 % (0.0-10.0); %Lymphocytes 38.8 % (21.0-51.0); %Monocytes 8.9 % (0.0-10.0); %Neutrophils 47.8 % (42.0-75.0); Hemoglobin 13.7 g/dL (14.0-18.0); Mean Corpuscular Hemoglobin 30.1 pg (27.0-31.0); Mean Corpuscular Volume 88.5 fL (78.0-98.0); Mean Platelet Volume 7.4 fL (7.4-10.4); Platelet Count 160 thou/uL (130-400); RBC Distribution Width 11.7 % (11.5-14.5); Red Blood Cell (RBC) Count 4.56 mill/uL (4.70-6.10); White Blood Cell (WBC) Count 3.5 thou/uL (4.8-10.8)
[2019-04-18 19:36] LABS: ALT (SGPT) 16 U/L (8-55); AST (SGOT) 14 U/L (5-34); Albumin 4.1 g/dL (3.4-4.8); Alkaline Phosphatase 319 U/L (40-150); Anion Gap 13 mmol/L (10-20); BUN (Urea Nitrogen) 11 mg/dL (8.4-25.7); Bilirubin, Total 1.1 mg/dL (0.2-1.2); CK (CPK) 212 U/L (30-200); Calc. Creatinine Clearance 0 mL/min (70-130); Carbon Dioxide 26 mmol/L (23-31); Chloride 105 mmol/L (98-107); Estimated GFR-MDRD 61; Globulin 2.4 g/dL (2.4-3.5); Glucose 296 mg/dL (83-110); Potassium 3.3 mmol/L (3.5-5.1); Protein, Total 6.5 g/dL (5.8-8.1); Sodium 141 mmol/L (136-145)
[2019-04-18 19:51] LABS: Bilirubin Negative (Negative); Blood, Urine Negative (Negative); Clarity Clear (Clear); Glucose, Urine (Dipstick) Greater than 1000 mg/dL (Negative); Leukocyte Negative Leu/uL (Negative); Nitrite Negative (Negative); Protein, Urine (Dipstick) 20 mg/dL (Neg-Trace); Urobilinogen Normal mg/dL (Less than 2)
[2019-04-18] MEDS ORDERED: Insulin Regular 300 UNITS/3 ML VIAL ONE (19:56)
--- NOTE | 2019-04-25 12:17 | EKG ---
Test Reason : SYNCOPE Blood Pressure : / mmHG Vent. Rate : 082 BPM Atrial Rate : 082 BPM P-R Int : 190 ms QRS Dur : 102 ms QT Int : 374 ms P-R-T Axes : 050 069 068 degrees QTc Int : 436 ms Normal sinus rhythm Normal ECG Biatrial enlargement Left ventricular hypertrophy Confirmed by STEFAN HIDALGO, KAELA Foster ([id number]), newspaper editor managing HECTOR RODRIGUEZ ([id number]) on 04/25/2019 12:17:43 PM Referred By: Confirmed By:KAELA AVILES MD
== END 2019-04-18 20:20 | disposition home or self-care (01) ==
LOC: ERS 18:37
DX: T67.5XXA Heat exhaustion, unspecified, initial encounter (principal); E11.9 Type 2 diabetes mellitus without complications; N40.0 Benign prostatic hyperplasia without lower urinary tract symptoms; E78.5 Hyperlipidemia, unspecified; I10 Essential (primary) hypertension; F32.9 Major depressive disorder, single episode, unspecified; F17.220 Nicotine dependence, chewing tobacco, uncomplicated; Z79.899 Other long term (current) drug therapy; Z79.84 Long term (current) use of oral hypoglycemic drugs
CPT/HCPCS: 36415; 70450; 80053; 81003; 82550; 84484; 85025; 93005; 96361; 96374; J1815

== ENCOUNTER 2020-01-01 15:29 | Emergency (ER) | payer MEDICARE ==
[2020-01-01] MEDS ORDERED: Ondansetron ODT 4 MG TAB ONE (16:03)
[2020-01-01 16:13] LABS: #Eosinphils 0.1 thou/uL (0.0-0.7); #Lymphocytes 1.3 thou/uL (1.20-3.40); #Monocytes 0.2 thou/uL (0.11-0.59); #Neutrophils 1.5 thou/uL (1.40-6.50); %Eosinophils 2.2 % (0.0-10.0); %Lymphocytes 40.9 % (21.0-51.0); %Monocytes 7.1 % (0.0-10.0); %Neutrophils 49.8 % (42.0-75.0); Hemoglobin 14.4 g/dL (14.0-18.0); Mean Corpuscular HGB CONC 33.3 g/dL (32.0-36.0); Mean Corpuscular Volume 89.9 fL (78.0-98.0); Mean Platelet Volume 8.1 fL (7.4-10.4); Platelet Count 157 thou/uL (130-400); RBC Distribution Width 11.7 % (11.5-14.5); White Blood Cell (WBC) Count 3.1 thou/uL (4.8-10.8)
[2020-01-01 16:30] LABS: Bilirubin Negative (Negative); Blood, Urine Negative (Negative); Clarity Clear (Clear); Glucose, Urine (Dipstick) 200 mg/dL (Negative); Leukocyte Negative Leu/uL (Negative); Nitrite Negative (Negative); Protein, Urine (Dipstick) 10 mg/dL (Neg-Trace); Urobilinogen Normal mg/dL (Less than 2)
[2020-01-01 16:32] LABS: ALT (SGPT) 19 U/L (8-55); AST (SGOT) 18 U/L (5-34); Albumin 4.2 g/dL (3.4-4.8); Alkaline Phosphatase 386 U/L (40-110); Anion Gap 14 mmol/L (10-20); BUN (Urea Nitrogen) 19 mg/dL (8.4-25.7); Bilirubin, Total 1.4 mg/dL (0.2-1.2); Calc. Creatinine Clearance 0 mL/min (70-130); Calcium 9.6 mg/dL (7.8-10.44); Carbon Dioxide 27 mmol/L (23-31); Chloride 102 mmol/L (98-107); Estimated GFR-MDRD 52; Glucose 256 mg/dL (83-110); Potassium 3.6 mmol/L (3.5-5.1); Protein, Total 7.2 g/dL (5.8-8.1); Sodium 139 mmol/L (136-145)
--- NOTE | 2020-01-01 16:49 | RAD ---
RADIOGRAPH CHEST 1 VIEW: DATE: 01/01/2020 HISTORY: 79-year-old male status post syncope. Concern for aspiration. FINDINGS: There are no airspace densities, pulmonary edema, pneumothorax, or cardiomegaly. The lateral costophr enic angles are sharp. IMPRESSION: No acute cardiopulmonary findings.
--- NOTE | 2020-01-01 16:53 | CT ---
CT BRAIN NONCONTRAST: DATE: 01/01/2020 HISTORY: 79-year-old male status post syncope FINDINGS: There is no evidence of acute intra-axial or extra-axial hemorrhage. There is no midline shift or any other mass effect. There is no extra-axial fluid collection. There is no evidence of obstructive hydrocephalus. Calvarium is intact. There is diffuse brain parenchymal volume loss. There are low att enuation areas in the white matter. These are nonspecific, but in a patient of this age, they are probably chronic ischemic white matter changes due to microvascular atherosclerosis. IMPRESSION: 1) No acute intracranial findings. 2) involutional changes and chronic ischemic white matter changes.
== END 2020-01-01 20:19 | disposition home or self-care (01) ==
LOC: ERS 15:29
DX: R55 Syncope and collapse (principal); E86.0 Dehydration; E11.9 Type 2 diabetes mellitus without complications; N40.0 Benign prostatic hyperplasia without lower urinary tract symptoms; E78.5 Hyperlipidemia, unspecified; I10 Essential (primary) hypertension; F32.9 Major depressive disorder, single episode, unspecified; F17.220 Nicotine dependence, chewing tobacco, uncomplicated; Z79.899 Other long term (current) drug therapy; Z79.4 Long term (current) use of insulin; Z79.891 Long term (current) use of opiate analgesic
CPT/HCPCS: 36416; 51701; 70450; 71045; 80053; 81003; 84484; 85025; 93005; 94760; 96360; 96361; Q0162